=== PATIENT | male | born 1935 | race Caucasian/White ===

== ENCOUNTER 2023-09-29 09:00 | Emergency (ER) | payer MEDICARE, BC ==
[2023-09-29 09:58] LABS: APPEARANCE,URINE CLEAR (CLEAR); BILIRUBIN,URINE NEGATIVE (NEGATIVE); COLOR,URINE YELLOW (YELLOW); GLUCOSE,URINE NEGATIVE (NEGATIVE); KETONES,URINE NEGATIVE (NEGATIVE); LEUKOCYTE ESTERASE,URINE SMALL (NEGATIVE); NITRITE,URINE NEGATIVE (NEGATIVE); OCCULT BLOOD,URINE TRACE-INTACT (NEGATIVE); PROTEIN,URINE NEGATIVE (NEGATIVE); UROBILINOGEN,URINE 0.2 EU/dL (0.2-1.0)
[2023-09-29 10:06] LABS: BASOPHILS ABSOLUTE AUTO 0.04 10^3/uL (0.00-0.50); BASOPHILS PERCENT AUTO 0.3 % (0-1); EOSINOPHILS ABSOLUTE AUTO 0.14 10^3/uL (0.00-1.50); EOSINOPHILS PERCENT AUTO 1.1 % (0-6); HEMATOCRIT 37.3 % (42.0-52.0); HEMOGLOBIN 12.1 g/dL (14.0-18.0); IMMATURE GRAN ABSOLUTE AUTO 0.03 10^3/uL (0.00-0.49); IMMATURE GRAN PERCENT AUTO 0.2 % (0.0-4.9); LYMPHOCYTES ABSOLUTE AUTO 1.04 10^3/uL (0.60-5.00); LYMPHOCYTES PERCENT AUTO 8.5 % (24-44); MEAN CORPUSCULAR HEMOGLOBIN 28.1 pg (27.0-32.0); MEAN CORPUSCULAR HGB CONC 32.4 g/dL (32.0-36.0); MEAN CORPUSCULAR VOLUME 86.7 fL (83.0-97.0); MONOCYTES ABSOLUTE AUTO 0.74 10^3/uL (0.00-1.50); MONOCYTES PERCENT AUTO 6.1 % (0-10); NEUTROPHILS ABSOLUTE AUTO 10.22 x10^3/uL (1.80-8.00); NEUTROPHILS PERCENT AUTO 83.8 % (41-71); PLATELET COUNT,PLT 186 10^3/uL (150-400); WHITE BLOOD CELL COUNT,WBC 12.2 10^3/uL (4.0-11.0)
[2023-09-29 10:13] LABS: BACTERIA,URINE FEW /HPF (NOT SEEN); SQUAMOUS EPITHELIAL CELLS,UR FEW /HPF (NOT SEEN); WBC,URINE >100 /HPF (0-5)
[2023-09-29 10:20] LABS: ALANINE AMINOTRANSFERASE,ALT 15 U/L (12-78); ALBUMIN 3.3 g/dL (3.4-5.0); ALKALINE PHOSPHATASE 71 U/L (46-116); ASPARTATE AMNIOTRANSFERASE,AST 18 U/L (15-37); BILIRUBIN TOTAL 0.4 mg/dL (0.0-1.0); BLOOD UREA NITROGEN,BUN 15 mg/dL (7-18); C-REACTIVE PROTEIN 0.14 mg/dL (<=0.30); CALCIUM 9.1 mg/dL (8.4-10.1); CARBON DIOXIDE,CO2 28 mmol/L (21-32); CHLORIDE,CL 103 mEq/L (98-106); CREATININE 0.9 mg/dL (0.7-1.3); ESTIMATED GFR 83 mL/min (>=60); GLUCOSE RANDOM 105 mg/dL (75-99); MAGNESIUM 1.8 mg/dL (1.8-2.4); POTASSIUM,K 3.5 mEq/L (3.5-5.0); PROTEIN TOTAL,TP 6.1 g/dL (6.4-8.2); SODIUM,NA 138 mEq/L (136-145)
== END 2023-09-29 11:43 | disposition home or self-care (01) ==
LOC: CC.ED 09:00
DX: N39.0 Urinary tract infection, site not specified (principal); R55 Syncope and collapse; I25.2 Old myocardial infarction; Z79.82 Long term (current) use of aspirin; Z79.899 Other long term (current) drug therapy
CPT/HCPCS: 36415; 70450; 71101-LT; 80053; 81001; 83735; 84484; 85025; 86140; 87086; 87088; 87186; 93005; 99284; 99285

== ENCOUNTER 2024-10-19 21:05 | Observation (INO) | payer MEDICARE, BC ==
[2024-10-19 21:26] LABS: BASOPHILS ABSOLUTE AUTO 0.04 10^3/uL (0.00-0.50); BASOPHILS PERCENT AUTO 0.5 % (0-1); EOSINOPHILS PERCENT AUTO 4.9 % (0-6); HEMATOCRIT 38.1 % (42.0-52.0); HEMOGLOBIN 12.2 g/dL (14.0-18.0); IMMATURE GRAN ABSOLUTE AUTO 0.01 10^3/uL (0.00-0.49); IMMATURE GRAN PERCENT AUTO 0.1 % (0.0-4.9); LYMPHOCYTES ABSOLUTE AUTO 1.61 10^3/uL (0.60-5.00); LYMPHOCYTES PERCENT AUTO 19.9 % (24-44); MEAN CORPUSCULAR HEMOGLOBIN 29.4 pg (27.0-32.0); MEAN CORPUSCULAR VOLUME 91.8 fL (83.0-97.0); MONOCYTES ABSOLUTE AUTO 0.63 10^3/uL (0.00-1.50); MONOCYTES PERCENT AUTO 7.8 % (0-10); NEUTROPHILS ABSOLUTE AUTO 5.41 x10^3/uL (1.80-8.00); NEUTROPHILS PERCENT AUTO 66.8 % (41-71); PLATELET COUNT,PLT 232 10^3/uL (150-400); RED BLOOD CELL COUNT 4.15 x10^6/uL (4.50-6.00); WHITE BLOOD CELL COUNT,WBC 8.1 10^3/uL (4.0-11.0)
[2024-10-19 21:45] LABS: ALANINE AMINOTRANSFERASE,ALT 12 U/L (12-78); ALBUMIN 3.2 g/dL (3.4-5.0); ALKALINE PHOSPHATASE 115 U/L (46-116); ASPARTATE AMNIOTRANSFERASE,AST 13 U/L (15-37); BILIRUBIN TOTAL 0.2 mg/dL (0.0-1.0); BLOOD UREA NITROGEN,BUN 18 mg/dL (7-18); CALCIUM 8.9 mg/dL (8.4-10.1); CARBON DIOXIDE,CO2 29 mmol/L (21-32); CHLORIDE,CL 100 mEq/L (98-106); CREATININE 1.3 mg/dL (0.7-1.3); GLUCOSE RANDOM 102 mg/dL (75-99); MAGNESIUM 1.9 mg/dL (1.8-2.4); POTASSIUM,K 3.9 mEq/L (3.5-5.0); PROTEIN TOTAL,TP 6.2 g/dL (6.4-8.2); SODIUM,NA 140 mEq/L (136-145)
[2024-10-19 21:53] LABS: C-REACTIVE PROTEIN < 0.50 mg/dL (<=0.50); ESTIMATED GFR 53 mL/min (>=60)
[2024-10-19] MEDS: Aspirin 81 MG Tab.Chew PO ONE (23:01)
[2024-10-19] MEDS: Clopidogrel 75 MG Tab PO ONE (23:01)
[2024-10-19] MEDS ORDERED: Morphine 2 MG/ML SYRINGE IVPUSH PRN (23:33)
[2024-10-19] MEDS ORDERED: Docusate Sodium 100 MG Cap PO PRN (23:33)
[2024-10-19] MEDS ORDERED: Acetaminophen 325 MG Tab PO PRN (23:33)
[2024-10-19] MEDS ORDERED: Ondansetron 4 MG/2 ML SDV IV PRN (23:33)
[2024-10-19] MEDS ORDERED: Ondansetron 4 MG Tab.DIS PO PRN (23:33)
[2024-10-19] MEDS: Metoprolol Tartrate 25 MG Tab PO SCH (23:50)
[2024-10-20 06:52] LABS: APPEARANCE,URINE CLEAR (CLEAR); BILIRUBIN,URINE NEGATIVE (NEGATIVE); COLOR,URINE YELLOW (YELLOW); GLUCOSE,URINE NEGATIVE (NEGATIVE); KETONES,URINE NEGATIVE (NEGATIVE); LEUKOCYTE ESTERASE,URINE SMALL (NEGATIVE); NITRITE,URINE NEGATIVE (NEGATIVE); OCCULT BLOOD,URINE TRACE-INTACT (NEGATIVE); PROTEIN,URINE NEGATIVE (NEGATIVE); UROBILINOGEN,URINE 0.2 EU/dL (0.2-1.0)
[2024-10-20 07:08] LABS: BACTERIA,URINE NOT SEEN /HPF (NOT SEEN); RBC,URINE 0-5 /HPF (0-5); SQUAMOUS EPITHELIAL CELLS,UR NOT SEEN /HPF (NOT SEEN); WBC,URINE 30-40 /HPF (0-5)
[2024-10-20 07:37] LABS: BASOPHILS ABSOLUTE AUTO 0.03 10^3/uL (0.00-0.50); BASOPHILS PERCENT AUTO 0.4 % (0-1); EOSINOPHILS ABSOLUTE AUTO 0.38 10^3/uL (0.00-1.50); EOSINOPHILS PERCENT AUTO 5.5 % (0-6); HEMATOCRIT 36.6 % (42.0-52.0); HEMOGLOBIN 11.6 g/dL (14.0-18.0); IMMATURE GRAN ABSOLUTE AUTO 0.02 10^3/uL (0.00-0.49); IMMATURE GRAN PERCENT AUTO 0.3 % (0.0-4.9); LYMPHOCYTES PERCENT AUTO 21.7 % (24-44); MEAN CORPUSCULAR HEMOGLOBIN 29.2 pg (27.0-32.0); MEAN CORPUSCULAR HGB CONC 31.7 g/dL (32.0-36.0); MEAN CORPUSCULAR VOLUME 92.2 fL (83.0-97.0); MONOCYTES ABSOLUTE AUTO 0.58 10^3/uL (0.00-1.50); MONOCYTES PERCENT AUTO 8.4 % (0-10); NEUTROPHILS ABSOLUTE AUTO 4.41 x10^3/uL (1.80-8.00); NEUTROPHILS PERCENT AUTO 63.7 % (41-71); PLATELET COUNT,PLT 219 10^3/uL (150-400); RED BLOOD CELL COUNT 3.97 x10^6/uL (4.50-6.00); WHITE BLOOD CELL COUNT,WBC 6.9 10^3/uL (4.0-11.0)
[2024-10-20] MEDS: Potassium Chloride 10 MEQ Tab.ER PO SCH (07:44)
[2024-10-20] MEDS: Tamsulosin 0.4 MG Cap.ER PO SCH (07:45)
[2024-10-20] MEDS: Aspirin 81 MG Tab.EC PO SCH (07:45)
[2024-10-20] MEDS: Clopidogrel 75 MG Tab PO SCH (07:45)
[2024-10-20] MEDS: Sennosides/Docusate Sodium 50-8.6 MG Tab PO SCH (07:45)
[2024-10-20] MEDS: Furosemide 40 MG Tab PO SCH (07:45)
[2024-10-20] MEDS: Rosuvastatin 10 MG Tab PO SCH (07:45)
[2024-10-20] MEDS ORDERED: Non-Formulary Medication 1 Each (Fluticasone Propion/Salmeterol [Fluticasone-Salmeterol 25 INH SCH (08:00)
[2024-10-20 08:12] LABS: BILIRUBIN TOTAL 0.3 mg/dL (0.0-1.0); CALCIUM 9.1 mg/dL (8.4-10.1); CREATININE 1.1 mg/dL (0.7-1.3); EST CRCL DRUG DOSING (CG) 50.95 mL/min; MAGNESIUM 1.9 mg/dL (1.8-2.4); POTASSIUM,K 3.9 mEq/L (3.5-5.0); PROTEIN TOTAL,TP 5.8 g/dL (6.4-8.2)
[2024-10-20] MEDS: Polyethylene Glycol 3350 Powder 17 GM Packet PO PRN (08:57)
[2024-10-20] MEDS: Isosorbide Mononitrate 30 MG Tab.ER PO SCH (11:59)
[2024-10-20] MEDS: Tuberculin, PPD 5 Units/0.1 ML 1 ML MDV IDERM ONE (12:10)
[2024-10-20] MEDS: ENZALUTAMIDE 40 MG PO SCH (19:46)
[2024-10-21 07:44] LABS: BASOPHILS ABSOLUTE AUTO 0.04 10^3/uL (0.00-0.50); BASOPHILS PERCENT AUTO 0.5 % (0-1); EOSINOPHILS ABSOLUTE AUTO 0.38 10^3/uL (0.00-1.50); EOSINOPHILS PERCENT AUTO 4.9 % (0-6); HEMATOCRIT 35.2 % (42.0-52.0); HEMOGLOBIN 11.3 g/dL (14.0-18.0); IMMATURE GRAN ABSOLUTE AUTO 0.02 10^3/uL (0.00-0.49); IMMATURE GRAN PERCENT AUTO 0.3 % (0.0-4.9); LYMPHOCYTES ABSOLUTE AUTO 1.56 10^3/uL (0.60-5.00); LYMPHOCYTES PERCENT AUTO 20.2 % (24-44); MEAN CORPUSCULAR HEMOGLOBIN 29.2 pg (27.0-32.0); MEAN CORPUSCULAR HGB CONC 32.1 g/dL (32.0-36.0); MONOCYTES ABSOLUTE AUTO 0.67 10^3/uL (0.00-1.50); MONOCYTES PERCENT AUTO 8.7 % (0-10); NEUTROPHILS ABSOLUTE AUTO 5.06 x10^3/uL (1.80-8.00); NEUTROPHILS PERCENT AUTO 65.4 % (41-71); PLATELET COUNT,PLT 214 10^3/uL (150-400); RED BLOOD CELL COUNT 3.87 x10^6/uL (4.50-6.00); WHITE BLOOD CELL COUNT,WBC 7.7 10^3/uL (4.0-11.0)
[2024-10-21 07:51] LABS: CALCIUM 8.9 mg/dL (8.4-10.1); CREATININE 1.1 mg/dL (0.7-1.3); EST CRCL DRUG DOSING (CG) 50.95 mL/min; MAGNESIUM 1.9 mg/dL (1.8-2.4); POTASSIUM,K 3.6 mEq/L (3.5-5.0)
== END 2024-10-21 09:40 ==
LOC: CC.ED 21:05 → CC.MS 22:35 → UNDOADMOB 22:35 → CC.MS 22:52
PROVIDERS: ADMIT Nurse Practitioner; ATTEND Nurse Practitioner
DX: I21.4 Non-ST elevation (NSTEMI) myocardial infarction (principal); W19.XXXA Unspecified fall, initial encounter
CPT/HCPCS: 36415; 80048; 80053; 81001; 83735; 84484; 85025; 86140; 86580; 87086; 87428-QW; 93005; 93010; 99285; A9270-GY; G0378